=== PATIENT | female | born 1950 | race Caucasian/White ===

== ENCOUNTER 2022-03-22 05:30 | Day surgery (SDC) | payer OTHER ==
[~2022-03-22] VITALS: Ht 149.9 cm; Wt 54.4 kg
[2022-03-22] MEDS ORDERED: CEFAZOLIN 1 GM IVPB PREMIX 50 ML IV ONE (07:52)
[2022-03-22] MEDS ORDERED: CEFAZOLIN SOD 1 GM in D5W 50 ML IV ONE (08:00)
[2022-03-22] MEDS ORDERED: LIDOCAINE 1% 10 MG/ML, 20 ML MDV INJ ONE (10:00)
[2022-03-22] MEDS ORDERED: LR 1,000 ML IV.SOLN IV ONE (10:00)
[2022-03-22] MEDS ORDERED: KETOROLAC TROMETHAMINE 30 MG VIAL IVP ONE (10:00)
[2022-03-22] MEDS ORDERED: ONDANSETRON HCL 4 MG/2 ML VIAL IVP ONE (10:00)
[2022-03-22] MEDS ORDERED: MIDAZOLAM HCL 5 MG/5 ML VIAL IVP ONE (10:00)
[2022-03-22] MEDS ORDERED: BUPIVACAINE /PF 0.25% 30 ML VIAL INJ ONE (10:00)
[2022-03-22] MEDS ORDERED: DEXAMETHASONE SOD PHOSPHATE 4 MG/ML VIAL IVP ONE (10:00)
[2022-03-22] MEDS ORDERED: PROPOFOL 200MG/ 20ML VIAL (DIPRIVAN) IV ONE (10:00)
[2022-03-22] MEDS ORDERED: fentaNYL CITRATE 250 MCG/5 ML AMP IV ONE (10:00)
[2022-03-22] MEDS ORDERED: NS IRRIG SOLN 1000 ML IR ONE (10:00)
[2022-03-22] MEDS ORDERED: SEVOFLURANE 15 MIN GAS INH ONE (10:00)
[2022-03-22] MEDS ORDERED: ACETAMINOPHEN I.V. 1000 MG 100 ML IV ONE (10:56)
[2022-03-22] MEDS ORDERED: METOCLOPRAMIDE HCL 10 MG/2 ML VIAL IVP PRN (11:00)
[2022-03-22] MEDS ORDERED: MEPERIDINE HCL/PF 25 MG/ML DISP.SYRIN IVP PRN (11:00)
[2022-03-22] MEDS ORDERED: HYDROmorphone 1 MG/ML INJ. CARTRIDGE IVP PRN ×3 (11:00→11:45)
[2022-03-22] MEDS ORDERED: LR 1,000 ML IV SCH (11:00)
[2022-03-22] MEDS ORDERED: HYDROcodone/ACETAMIN 5-325 MG TAB (NORCO/ VICODIN) PO PRN (11:45)
[2022-03-22] MEDS ORDERED: D5/0.45 NS 1,000 ML IV SCH (11:45)
[2022-03-22 15:33] VITALS: BP_SYST 154
== END 2022-03-22 14:22 | disposition home or self-care (01) ==
LOC: SMU 05:30 → SDS 05:30 → EDSTATUS 09:30 → SDS 14:22
PROVIDERS: ATTEND Colon & Rectal Surgery
DX: C50.911 Malignant neoplasm of unspecified site of right female breast (principal); E78.5 Hyperlipidemia, unspecified; M85.80 Other specified disorders of bone density and structure, unspecified site; Z79.899 Other long term (current) drug therapy; Z20.822 Contact with and (suspected) exposure to COVID-19
CPT/HCPCS: 36415 ×2; 19301; 38525; 38900; 19281; 78195; 88307; 88333; 88334; 88342; 87426; U0003; A9541; J3490; J0690; J1100; J1885; J2001; J2250; J2405; J2704; J3010; J7120; J0131; C1751; J7060